=== PATIENT | female | born 1965 | race Caucasian/White ===

== ENCOUNTER 2018-09-06 10:00 | Emergency (ER) | payer OTHER ==
[2018-09-06 10:14] VITALS: BP 118/75
--- NOTE | 2018-09-06 10:38 | UC ---
Dizzy HPI HPI Summary: dizziness x 1 day symptoms are sever, 6 out of 10 , worse with head movements , better with rest, + nausea, no vomiting , no ear pain , no chest pain , no palpitations no cold sx, no sinus pressure no fever, no chills - History Of Current Complaint Chief Complaint: UCDizziness Stated Complaint: DIZZY Time Seen by Provider: 09/06/18 10:09 Hx Obtained From: Patient Onset/Duration: Sudden Onset, Lasting Days - 1, Still Present Timing: Constant Severity Initially: Severe Severity Currently: Severe Pain Intensity: 0 Character: Dizzy Aggravating Factor(s): Exertion, Position Change Alleviating Factor(s): Rest Associated Signs And Symptoms: Positive: Nausea. Negative: Vomiting, Diaphoresis, Tinnitus, Chest Pain, SOB, Palpitations, Unsteady Gait, Visual Changes, Decreased Oral Intake, Change In Medication, Change In Diet - Allergies/Home Medications Allergies/Adverse Reactions: Allergies Allergy/AdvReac Type Severity Reaction Status Date / Time No Known Allergies Allergy Verified 09/06/18 10:14 Home Medications: Home Medications Fluticasone NASAL SPRAY 50MCG* [Flonase NASAL SPRAY 50MCG*] 2 spray BOTH NARES DAILY 09/06/18 [History Confirmed 09/06/18] Hormone Replacement Therapy 1 tab PO DAILY 09/06/18 [History] LoraTADine TAB(NF) [Claritin 10 MG TAB(NF)] 10 mg PO DAILY 09/06/18 [History Confirmed 09/06/18] Venlafaxine EXT RELEASE CAP* [Effexor Xr CAP*] 75 mg PO DAILY 09/06/18 [History Confirmed 09/06/18] PMH/Surg Hx/FS Hx/Imm Hx - Additional Past Medical History Additional PMH: Allergies, Anxiety, HRT Psychological History: Anxiety - Surgical History Surgical History: Yes Surgery Procedure, Year, and Place: Total Hysterectomy, 2004, [place] - Family History Known Family History: Negative: Diabetes - Social History Alcohol Use: 1-2 beers daily Substance Use Type: None Smoking Status (MU): Heavy Every Day Tobacco Smoker Amount Used/How Often: <1 PPD Length of Time of Smoking/Using Tobacco: Since Age 16 Review of Systems All Other Systems Reviewed And Are Negative: Yes Constitutional: Positive: Negative Skin: Positive: Negative Eyes: Positive: Negative ENT: Positive: Negative Respiratory: Positive: Negative Cardiovascular: Positive: Negative Neurological: Positive: Weakness. Negative: Headache, Paresthesia, Numbness Is Patient Immunocompromised?: No Physical Exam Triage Information Reviewed: Yes Appearance: Well-Nourished, Pain Distress Vital Signs: Initial Vital Signs Temp 96.9 F 09/06/18 10:08 Pulse 68 09/06/18 10:08 Resp 18 09/06/18 10:08 BP 118/75 09/06/18 10:08 Pulse Ox 100 09/06/18 10:08 Vital Signs Reviewed: Yes Eye Exam: Normal Eyes: Positive: Conjunctiva Clear ENT: Positive: Normal ENT inspection, Hearing grossly normal, Pharynx normal, TMs normal. Negative: Pharyngeal erythema, Nasal congestion, Nasal drainage, TM bulging, TM dull, TM red Neck: Positive: Supple, Nontender, No Lymphadenopathy Respiratory: Positive: Chest non-tender, Lungs clear, Normal breath sounds Cardiovascular: Positive: RRR, No Murmur, Pulses Normal Abdomen Description: Positive: Nontender, Soft. Negative: CVA Tenderness (R), CVA Tenderness (L), Distended, Guarding Bowel Sounds: Positive: Present Skin Exam: Normal UC Physical Exam Vital Signs On Initial Exam: Initial Vitals Temp Pulse Resp BP Pulse Ox 96.9 F 68 18 118/75 100 09/06/18 10:08 09/06/18 10:08 09/06/18 10:08 09/06/18 10:08 09/06/18 10:08 - Neurological Exam Neurological: Normal, Sensory/Motor Intact, Alert, Oriented to Person Place, Time, CN Intact II-III, Abnormal Gait, Speech Normal - Neuro/Tendon Exam Neuro/Tendon: normal sensation, normal motor functions Dizzy Course/Dx - Differential Dx/Diagnosis Provider Diagnosis: Vertigo Discharge - Sign-Out/Discharge Documenting (check all that apply): Patient Departure All imaging exams completed and their final reports reviewed: No Studies - Discharge Plan Condition: Stable Disposition: HOME Prescriptions: Meclizine TAB* [Antivert 12.5 TAB*] 25 mg PO TID PRN #15 tab PRN Reason: Dizziness Patient Education Materials: Vertigo (ED) Referrals: Erlinda Samuels PA [Primary Care Provider] - Additional Instructions: please follow up with your pcp in 5 days - Billing Disposition and Condition Condition: STABLE Disposition: Home
== END 2018-09-06 10:54 | disposition home or self-care (01) ==
LOC: UCCORT 10:00
DX: R42 Dizziness and giddiness (principal); F41.9 Anxiety disorder, unspecified
CPT/HCPCS: 99202; G0463

== ENCOUNTER 2019-09-21 15:06 | Emergency (ER) | payer OTHER ==
[2019-09-21 15:50] VITALS: BP 101/63
--- NOTE | 2019-09-21 16:18 | UC ---
Respiratory Complaint HPI - HPI Summary HPI Summary: Nonstop coughing assoc w/ chest tightness, wheezing and chest congestion w/ sob. she is a smoker. does not use any meds for lungs. Traveled to [place] thru Monday for work. The long work hours and trip worsened her symptoms. - History of Current Complaint Chief Complaint: UCGeneralIllness Stated Complaint: COUGH/CONGESTION Time Seen by Provider: 09/21/19 16:16 Hx Obtained From: Patient Pain Intensity: 3 Aggravating Factors: Deep Breaths Alleviating Factors: Nothing - Allergies/Home Medications Allergies/Adverse Reactions: Allergies Allergy/AdvReac Type Severity Reaction Status Date / Time No Known Allergies Allergy Verified 09/21/19 15:50 PMH/Surg Hx/FS Hx/Imm Hx Previously Healthy: Yes Psychological History: Depression - Surgical History Surgical History: Yes Surgery Procedure, Year, and Place: Total Hysterectomy, 2003, [place] - Family History Known Family History: Negative: Diabetes - Social History Alcohol Use: Weekly Substance Use Type: None Smoking Status (MU): Heavy Every Day Tobacco Smoker Amount Used/How Often: <1 PPD Length of Time of Smoking/Using Tobacco: Since Age 16 Review of Systems All Other Systems Reviewed And Are Negative: Yes Constitutional: Negative: Fever Skin: Negative: Rash ENT: Negative: Sore Throat, Sinus Congestion Respiratory: Positive: Shortness Of Breath, Cough, Other - wheezing Cardiovascular: Positive: Other - chest tightness Neurological: Negative: Headache Physical Exam Triage Information Reviewed: Yes Appearance: Well-Appearing Vital Signs: Initial Vital Signs Temp 98.0 F 09/21/19 15:43 Pulse 66 09/21/19 15:43 Resp 18 09/21/19 15:43 BP 101/63 09/21/19 15:43 Pulse Ox 96 09/21/19 15:43 Vital Signs Reviewed: Yes Eyes: Positive: Conjunctiva Clear ENT: Positive: Pharynx normal, TMs normal, Uvula midline Neck: Positive: Supple, Nontender, No Lymphadenopathy Respiratory: Positive: No respiratory distress, No accessory muscle use, Crackles - bilat, lower lung bases, Wheezing. Negative: Rhonchi, Stridor Cardiovascular Exam: Normal Neurological: Positive: Alert Skin: Negative: Rashes Respiratory Course/Dx - Course Course Of Treatment: 3 days of cough, wheezing and chest tightness. On exam there were rales at bases of both lungs but good O2, wheezing w/ coughing fits in room. No resp. distress but we are going to start antibx, inhaler, and steroids for bronchospasming. good vitals. Possible pneumonia with abnormal lung sounds and bronchospasming. I also suspect she has undiagnosed COPD. Recommended following up w/ pcp - Differential Dx/Diagnosis Differential Diagnosis/HQI/PQRI: Lower Resp Infection, Sinusitis, Other Provider Diagnosis: Lower respiratory infection Discharge ED - Sign-Out/Discharge Documenting (check all that apply): Patient Departure All imaging exams completed and their final reports reviewed: No Studies - Discharge Plan Condition: Good Disposition: HOME Prescriptions: Albuterol HFA INHALER* [Ventolin HFA Inhaler*] 2 puff INH Q4H PRN #1 mdi PRN Reason: Wheezing Azithromyxin GUIDO (NF) [Z-Guido (Zithromax) 250 mg tabs #6] 2 tab PO .TODAY, THEN 1 DAILY #6 tab methylPREDNISolone [Medrol Dosepak 4 MG*] 0 mg PO .SEE GUIDO INSTRUCTION #1 guido Patient Education Materials: How to Stop Smoking (ED) Referrals: No Primary Care Phys,NOPCP [Primary Care Provider] - Additional Instructions: Please see a pcp to see if you may have COPD. I am treating you for possible bacterial pneumonia and bronchospasming. - Billing Disposition and Condition Condition: GOOD Disposition: Home
== END 2019-09-21 16:31 | disposition home or self-care (01) ==
LOC: UCCORT 15:06
DX: J22 Unspecified acute lower respiratory infection (principal); F17.210 Nicotine dependence, cigarettes, uncomplicated
CPT/HCPCS: 99212; G0463